=== PATIENT | male | born 1960 | race Caucasian/White ===

== ENCOUNTER 2018-09-29 06:10 | Day surgery (SDC) | payer OTHER ==
[~2018-09-29] VITALS: Ht 177.8 cm; Wt 77.1 kg
--- NOTE | ~2018-09-29 | OP ---
PATIENT NAME: LAYA PUGH MEDICAL RECORD: [id number] :56 LOCATION:D.OPS ADMISSION DATE: SURGEON: DAVONTE JOSEPH MD DATE OF OPERATION: 09/29/2018 PREOPERATIVE DIAGNOSIS: Right inguinal hernia. POSTOPERATIVE DIAGNOSIS: Right inguinal hernia. PROCEDURE: Right inguinal hernia repair with medium PHS mesh. SURGEON: Davonte Joseph MD REPORT OF PROCEDURE: The patient's right groin was prepped and draped in sterile fashion. An oblique incision was made above the inguinal ligament. Electrocautery was used to dissect through subcutaneous tissues to the external oblique fascia. This fascia was opened up to the external ring using electrocautery. We then elevated the spermatic cord and a Armando was placed around it. The patient had an indirect hernia defect, which was dissected free from the spermatic cord. Once it was freed up, it was pushed back into the abdominal cavity. We then opened up the inguinal floor and dissected out the preperitoneal space of Retzius. The patient had an ilioinguinal nerve, which was found and high ligated. We then placed a medium PHS mesh into the inguinal floor and after splaying it out appropriately, it was sutured down on all 4 sides using multiple interrupted 0 Vicryls. The wound was then irrigated out with normal saline. The external oblique fascia was closed with running 2-0 Vicryl, Js's was closed with interrupted 3-0 Vicryl, and the skin was closed with running subcutaneous 5-0 Monocryl. A total of 10 mL of 0.25% Marcaine with epinephrine was infused into the surrounding tissues and the wound was dressed appropriately. COMPLICATIONS: None. CONDITION: Stable. ANESTHESIA: General endotracheal and local. BLOOD LOSS: Minimal. TRANSINT:[id number] Voice Confirmation ID: [id number] DOCUMENT ID: [id number] DAVONTE JOSEPH MD at 1219 CC: [id number] DICTATION DATE: 09/29/1843 [employer] ADVISOR: 09/29/18 [id number] [facility] [place] 09/29/18 [place] [id number]
[~2018-09-29 06:10] MED LIST: ASCORBIC ACID500 MG PO; CAYENNE PEPPER PO; CENTRUM MEN'S1 EACH PO; GINSENG PO; SUPER B COMPLE150 MG PO; TUMERIC PO; XANAX0.25 MG PO
[2018-09-29 07:13] VITALS: BP 131/74; Ht 177.8 cm; Wt 77.1 kg
[2018-09-29] MEDS ORDERED: NORCO 10-325 TA1 TAB PO (08:38)
== END 2018-09-29 10:33 | disposition home or self-care (01) ==
LOC: D.OPS 06:10 → D.PAN 08:00 → D.OPS 10:33
DX: K40.90 Unilateral inguinal hernia, without obstruction or gangrene, not specified as recurrent (principal); Z01.812 Encounter for preprocedural laboratory examination